=== PATIENT | female | born 1940 | race Caucasian/White ===

== ENCOUNTER → 2020-01-11 | Outpatient (CLI) | payer MEDICARE, OTHER | LOC: COL.RAD 12-26 12:30 | DX: I27.20 Pulmonary hypertension, unspecified (principal) | CPT/HCPCS: A9540; A9567 ==

== ENCOUNTER 2020-02-19 18:02 | Inpatient (IN) | payer MEDICARE, OTHER ==
[~2020-02-19] VITALS: Ht 167.6 cm; Wt 54.8 kg
[2020-02-19 19:01] LABS: BASO # 0.1 (0.0-0.2); BASO % 0.7 % (0.0-2.0); EOS # 0.2 (0.0-0.7); EOS % 1.9 % (0-4.0); GRAN % 81.9 % (42.2-75.2); HEMATOCRIT 44.1 % (37.0-47.0); LYMPH # 1.2 (1.2-3.4); LYMPH % 10.2 % (20.0-51.0); MEAN CELL VOLUME 89 fl (80.0-100.0); MEAN CORPUSCULAR HEMOGLOBIN 28 pg (27.0-31.0); MEAN CORPUSCULAR HGB CONC 32 g/dl (33.0-37.0); MEAN PLATELET VOLUME 9.2 fl (7.4-10.4); MONO # 0.6 (0.1-0.6); MONO % 4.9 % (1.7-9.3); PLATELET COUNT 322 K/mm3 (130-400); RED BLOOD COUNT 4.94 M/mm3 (4.10-5.30); REDCELL DISTRIBUTION WIDTH-CV 13.6 % (11.5-14.5)
[2020-02-19 19:09] LABS: ALANINE AMINOTRANSFERASE 13 U/L (4-34); ALBUMIN 4.5 gm/dL (3.5-5.0); ALKALINE PHOSPHATASE 94 U/L (50-136); ANION GAP 11 mmol/L (7-16); AST,SGOT 32 U/L (15-37); BILIRUBIN,TOTAL 0.5 mg/dL (0.0-1.0); BLOOD UREA NITROGEN 33 mg/dL (7-17); CALCIUM 9.3 mg/dL (8.4-10.2); CARBON DIOXIDE 25 mmol/L (22-30); CHLORIDE 99 mmol/L (98-107); CREATININE, serum 1.21 (0.52-1.25); GLUCOSE 105 mg/dL (74-106); POTASSIUM 4.7 mmol/L (3.4-5.0); SODIUM 135 mmol/L (137-145); TOTAL PROTEIN 8.5 gm/dL (6.4-8.2)
[2020-02-19 19:12] LABS: C-REACTIVE PROTEIN < 0.5 mg/dL (0.0-0.9)
[2020-02-19] MEDS ORDERED: BENICAR 20MG TA20 MG PO (19:16)
[2020-02-19] MEDS ORDERED: LASIX 40MG TABL40 MG PO (19:17)
[2020-02-19] MEDS ORDERED: SYNTHROID0.05 MG/TA PO (19:18)
[2020-02-19] MEDS ORDERED: COREG 3.123.125 MG/T PO (19:19)
[2020-02-19] MEDS ORDERED: AIRDUO DIGIHAL1 EAC1 IH (19:20)
[2020-02-19 20:37] LABS: PROTHROMBIN TIME 10.7 SECONDS (9.7-12.8)
[2020-02-19 21:53] VITALS: BP 110/40; PULSE 97; TEMP 97.7
--- NOTE | 2020-02-19 22:38 | NUR ---
Pt. arrived to the floor via stretcher. Pt. is A&OX3, assessment complete. IV to rt. forearm patent, IV fluids infusing per orders. Immobilizer brace to lt. leg. Pt. denies pain or other needs, call light within reach.
[2020-02-19] MEDS ORDERED: AIRDUO RESPICL1 EAC1 IH (23:53)
[2020-02-20 00:30] LABS: MUCOUS Present /lpf; PH 5 (5-8); SQUAMOUS EPITHELIAL 0-2 /hpf; URINE APPEARANCE Hazy; URINE BACTERIA Rare /hpf; URINE BILIRUBIN Negative (NEGATIVE); URINE BLOOD Negative (NEGATIVE); URINE COLOR Yellow; URINE GLUCOSE Negative (NEGATIVE); URINE KETONE Negative (NEGATIVE); URINE LEUKOCYTE ESTERASE Trace (NEGATIVE); URINE NITRATE Positive (NEGATIVE); URINE PROTEIN(semi-quant) Negative (NEGATIVE); URINE RBC 0-2 /hpf; URINE UROBILINOGEN Negative (NEGATIVE)
[2020-02-20 00:32] LABS: COLLECTION METHOD CLEAN CATCH
[2020-02-20 05:20] VITALS: BP 109/56; PULSE 95; TEMP 97.8
[2020-02-20 07:28] VITALS: BP 131/56; PULSE 74; TEMP 98.2
--- NOTE | 2020-02-20 09:35 | NUR ---
Initial visit; Patient thanked Salicylic Acid Blender for looking in on her and offering God's blessings for healing and for keeping her in Salicylic Acid Blender's prayers.
[2020-02-20 11:20] VITALS: BP 96/62; PULSE 92; TEMP 97.9
--- NOTE | 2020-02-20 11:31 | NUR ---
Used Car Make Ready Mechanic met with patient to discuss discharge planning. Patient lives in [place] with her son, Cortez (ph#[phone]) [address] Jacobson for primary care. Patient states she uses three pharmacies for her medications, [facility], [facility], and [facility] to get the best prices on her medications. Patient states her son, Cortez picks up her medications for her. Patient has home oxygen from [facility] and uses no other DME at home normally. Patient states her son does have walkers at home. Patient states she is normally independent with ADLS. Patient fell at home yesterday and advised that before yesterday, she has not fallen at home in a few years. Patient does not have Advance Directives. Patient is not and has two children, Cortez and Iesha (ph#[phone]). Patient states she would like to get home at discharge if possible and would be open to any recommended services. Patient states her daughter, Iesha may be a better point of contact for discharge planning. SW contacted patient's daughter, Iesha who requested a phone call from Hospitalist today. HESHAM Reeves spoke with Hospitalist about this. Patient may have surgery tomorrow. SW will continue to follow for discharge needs.
[2020-02-20 16:07] VITALS: BP 91/36; PULSE 86; TEMP 97.7
--- NOTE | 2020-02-20 18:30 | NUR ---
Patient had a rough day. She has issues with cramping a pain to her lower extremities chronically, so she is not comfortable in the brace. Denies nausea. Morphine has been helping for pain to her legs. We also tried norco and tylenol but so far the morphine works the best. No other changes at this time. Call light within reach.
[2020-02-20 19:08] VITALS: BP 113/54; PULSE 89; PULSE 98; TEMP 98.6
--- NOTE | 2020-02-20 21:00 | NUR ---
Pt. sitting up in bed at this time. Pt. is A&OX3, assessment complete. INT to rt. forearm patent. Pt. reports pain at a 5 on pain scale, giving pain meds per orders. Pt. has immobilizer brace to lt. leg. CMS wnl. Pt. denies further needs, call light within reach.
[2020-02-21] VITALS (10 sets, daily range): BP systolic 87–130; BP diastolic 40–68; PULSE 72–100; TEMP 97.4–99.3
[2020-02-21 06:57] LABS: BASO % 0.4 % (0.0-2.0); EOS # 0.2 (0.0-0.7); EOS % 1.8 % (0-4.0); GRAN # 7.7 (1.4-6.5); GRAN % 80.2 % (42.2-75.2); LYMPH # 0.9 (1.2-3.4); LYMPH % 8.8 % (20.0-51.0); MEAN CELL VOLUME 90 fl (80.0-100.0); MEAN CORPUSCULAR HGB CONC 32 g/dl (33.0-37.0); MEAN PLATELET VOLUME 9.7 fl (7.4-10.4); MONO # 0.8 (0.1-0.6); MONO % 8.4 % (1.7-9.3); PLATELET COUNT 246 K/mm3 (130-400); RED BLOOD COUNT 3.65 M/mm3 (4.10-5.30); REDCELL DISTRIBUTION WIDTH-CV 13.4 % (11.5-14.5)
[2020-02-21 06:59] LABS: CALCIUM 8.5 mg/dL (8.4-10.2); CREATININE, serum 1.21 (0.52-1.25); POTASSIUM 4.7 mmol/L (3.4-5.0)
[2020-02-21 07:08] LABS: HEMATOCRIT 32.9 % (37.0-47.0); HEMOGLOBIN 10.5 g/dl (12.5-16.0); MEAN CORPUSCULAR HEMOGLOBIN 29 pg (27.0-31.0)
--- NOTE | 2020-02-21 07:15 | NUR ---
PT RESTING IN BED EATING BREAKFAST. BEGIN THERAPY THIS AM. OCCLUSIVE ARGELIA WRAP CDI, EXTREMITY ELEVATED WITH PILLOW, SCDS INPLACE, ICE TO RIGHT KNEE.
--- NOTE | 2020-02-21 07:25 | NUR ---
Shift assessment complete. Pt. sitting up in bed, alert and oriented, ate about 50% of breakfast. Tele on, O2 on at 2L via nasal canula, INT rt forearm intact. Lugo in place and intact on rt leg, urine clear and yellow. Brace on lt. leg, elevated with pillows, has ice. Pt. denies any irritation from brace and only experiences pain when the leg is moved. Call light within reach, no further needs at this time.
--- NOTE | 2020-02-21 10:49 | NUR ---
Cloth Weaver attended clinical rounds with the team. PT/OT ordered. Hospitalist and RN advised that patient will likely need placement at discharge. SW followed up with patient to discuss placement options. Patient is unsure on what her choices would be and would like to see what her children think. SW contacted patient's daughter Iesha who is in agreement with placement for rehab. Iesha is interested in both [facility] and [facility] in [place]. Iesha is agreeable to have referrals sent to both. Iesha will follow up with patient and her family in regards to what the first preference would be. YEE contacted Jeanette [facility] Director to give referral. YEE then contacted Nuvia at [facility] and faxed referral. Nuvia advised that at this time they are not allowing visitors and will also require a COVID swab prior to admit if they are able to accept. YEE collaborated with HESHAM Bravo about ordering COVID swab. YEE will continue to follow.
--- NOTE | 2020-02-21 13:51 | NUR ---
Bobbin Winder Tender collaborated with Cortez PT who advised patient will not be able to tolerate three hours of daily therapy required of Inpatient Rehab. Shortly after, YEE spoke with Nuvia, Hobber at [facility] who declined referral as they did not feel they could medically manage patient. YEE contacted patient's daughter, Iesha who advised her brother, Cortez would be in to visit with the patient soon. YEE contacted Cortez who reports he will be here within the hour. YEE reviewed the above information with patient's son, Cortez who is in agreement that patient would require SNF instead of IPR. YEE advised Cortez that she would meet with patient and follow up with him about what referrals were sent. SW met with patient to review the above information. Patient agrees she could not do three hours daily of therapy. SW provided Medicare.gov list of SNFs within a 50 mile radius. Patient's preferences are 1) [facility] in [place] and 2) [facility]. YEE then contacted Jose at [facility] and faxed referral. YEE left a message for Jyoti at and emailed her a referral as they cannot receive faxes from the hospital. YEE will continue to follow.
--- NOTE | 2020-02-21 15:54 | NUR ---
Follow-up visit; Patient states she is still not doing well but thanks Armature Winder Helper Repair for continuing to keep her in chief medical director's prayers.
--- NOTE | 2020-02-21 16:41 | NUR ---
Cord Tire Builder met with patient and patient's son to provide update on referrals. [facility] and [facility] are both screening referral at this time. SW will continue to follow.
--- NOTE | 2020-02-21 19:51 | NUR ---
Resting in bed. Assessment complete. Lungs clear. Heart sounds irregular. Bowels active x4. Pulses present throughout. No edema noted. INT right forearm flushed without complications. CMS intact to left extremity. Denies pain at this time. Repositioned. Patient BP hypotensive. Spoke with HAL Vance- hold any BP medications and monitor at this time. Patient aware of plan. Call light in reach. Renteria to dependent drainage. Sediment in renteria.
--- NOTE | 2020-02-21 21:56 | NUR ---
Reported 8/10 leg pains. Requested PRN norco. BP improved. Provided with norco. Deneis other needs. Call light in reach.
--- NOTE | 2020-02-21 22:55 | NUR ---
Resting in bed asleep. Call light in reach.
--- NOTE | 2020-02-21 23:50 | NUR ---
Patient reported leg pains/muscle aches. Provided with PRN flexeril at this time. Will continue to monitor.
[2020-02-22 02:57] VITALS: BP 143/41
[2020-02-22 04:21] VITALS: BP 120/60; PULSE 100; TEMP 98.1
--- NOTE | 2020-02-22 04:52 | NUR ---
Resting in bed. Denies needs. Call light in reach.
--- NOTE | 2020-02-22 05:28 | NUR ---
Patient required PRN flexeril and norco for pain control throughout night. Otherwise uneventful night. Resting in bed this AM. Call light in reach.
[2020-02-22 07:01] VITALS: BP 121/50; PULSE 96; TEMP 98.2
--- NOTE | 2020-02-22 07:05 | NUR ---
Report given to HESHAM Bravo
[2020-02-22] MEDS ORDERED: ASPI325T6 PO (07:41)
[2020-02-22 08:10] LABS: BASO % 0.4 % (0.0-2.0); EOS # 0.2 (0.0-0.7); EOS % 1.8 % (0-4.0); GRAN # 8.9 (1.4-6.5); GRAN % 81.2 % (42.2-75.2); HEMOGLOBIN 10.6 g/dl (12.5-16.0); LYMPH # 0.8 (1.2-3.4); LYMPH % 7.6 % (20.0-51.0); MEAN CELL VOLUME 89 fl (80.0-100.0); MEAN CORPUSCULAR HEMOGLOBIN 29 pg (27.0-31.0); MEAN CORPUSCULAR HGB CONC 33 g/dl (33.0-37.0); MEAN PLATELET VOLUME 9.7 fl (7.4-10.4); MONO # 0.9 (0.1-0.6); MONO % 8.6 % (1.7-9.3); PLATELET COUNT 240 K/mm3 (130-400); RED BLOOD COUNT 3.63 M/mm3 (4.10-5.30); REDCELL DISTRIBUTION WIDTH-CV 13.3 % (11.5-14.5)
[2020-02-22 08:15] LABS: HEMATOCRIT 32.3 % (37.0-47.0)
[2020-02-22 08:27] LABS: CALCIUM 8.6 mg/dL (8.4-10.2); CREATININE, serum 1.04 (0.52-1.25); POTASSIUM 4.5 mmol/L (3.4-5.0)
[2020-02-22] MEDS ORDERED: TYLENOL 325MG325 MG PO (08:29)
[2020-02-22] MEDS ORDERED: OMNICEF 300MG300 MG PO (08:32)
[2020-02-22] MEDS ORDERED: NORCO 325 MG-51 TAB PO (08:33)
[2020-02-22] MEDS ORDERED: FLEXERIL 1010 MG/TAB PO (08:33)
--- NOTE | 2020-02-22 08:59 | NUR ---
AGREE WITH STUDENT'S ASSESSMENTS THIS AM.
--- NOTE | 2020-02-22 09:39 | NUR ---
Follow-up; Patient sleeping, left special prayer card for Rebecca as she continues to struggle with her health issues.
[2020-02-22 12:36] VITALS: BP 100/44; BP 163/94; PULSE 80; PULSE 82; TEMP 97.9; TEMP 98.2
--- NOTE | 2020-02-22 15:00 | NUR ---
Ad Trafficker contacted Jyoti at [facility] who advised they could not accept referral due to staffing. Jyoti reports they likely could not accept a new referral until next week. YEE contacted Jose at [facility] who reports they can accept if Financial Counseling assists patient with applying for Medicaid. Jose would also like for patient to have DPOA-HC established if possible. Jose reports that he spoke with patient's daughter and patient's son about break in stay and potential out of pocket cost as patient is non weight bearing. Jose states the family did not feel like they could afford out of pocket cost which is why Jose encouraged the family to apply for Medicaid. YEE consulted Halley, Financial Counselor. Halley contacted patient's son who said they were just going to take the patient home and did not want to pursue Medicaid. YEE contacted patient's son, Cortez to follow up. Cortez advised that the family would like to take patient home if possible with Home Health. Cortez reports that the patient would go home with his sister, Iesha in [place]. Cortez advised that Iesha and her son would be able to provide 24 hour supervision. Cortez advised that patient has a walker, wheelchair, and bedside commode available. Cortez states patient would be on the first level of the home and that there are no stairs to entire Iesha's home. YEE collaborated with Cortez and Armando from PT who advised this plan would be reasonable if family was willing to provide care. YEE contacted Iesha who states she could take patient home, but that it would have to be tomorrow so arrangements can be made arrangements for Home Health and to set up all needed DME. Iesha reports they would have to transport patient's home oxygen set up from her home in [place] to [place]. Iesha also expressed interest in a hospital bed. Iesha states she took care of her father three years ago in her home and that her son is home at this time and is a professional athletes coach. YEE then contacted [facility] and faxed over clinical information to determine if insurance would cover a hospital bed in the home for patient. YEE updated Hospitalist who did not feel this was the best plan for patient. YEE advised that Iesha reported she took care of her father in her home about three years ago. YEE also advised that patient has an accepting facility but family does not want to private pay. YEE contacted Iesha again to follow up on plan and Iesha states she does not feel that she knows what all her options are. Iseha inquired if patient can go to [facility] and then discharge home when Medicare stops covering stay. Iesha also inquired about a swing bed option. YEE informed Iesha that there is a [facility] in [place] and she would like a referral sent there. YEE followed up with Jose who advised they can still accept but would like for patient to apply for Medicaid and to have DPOA completed. Jose also advised that the team at [facility] may have concerns with discharge plan home depending on their assessment and patient's progress with therapy. YEE followed up with Shell at [place] [facility] who should have an answer soon. YEE will follow up.
[2020-02-22 16:10] VITALS: BP 121/62; PULSE 96; TEMP 98.3
--- NOTE | 2020-02-22 17:08 | NUR ---
Appliance Assembler contacted Shell at [facility] who advised they can accept patient tomorrow morning if that's where patient and family decide. YEE met with patient's children, Cortez and Iesha and presented options. YEE advised that [facility] could be an option if patient was willing to apply for Medicaid. YEE also advised that [facility] can accept tomorrow. Iesha advised that they would like patient to discharge to [facility]. Iesha also stated that as patient progresses, they would like to be rescreened for [place] [facility]. Iesha states that when patient is ready for discharge from [facility], she will take patient home with home health if at that time, patient still not qualifying for a stay at Inpatient Rehab. Iesha and Cortez are agreeable to provide transportation for patient to [facility] and will ensure they have patient's oxygen for transport. YEE updated NICHOLAS Lynch and HESHAM Bravo on discharge plan.
[2020-02-22 19:53] VITALS: BP 133/76; PULSE 101; TEMP 97.6
--- NOTE | 2020-02-22 22:10 | NUR ---
Pt. sitting up in bed at this time. Pt. is A&OX3, assessment complete. INT to rt. forearm patent. Brace to lt. leg. Pt. reports pain at a 5 on pain scale, gave pain meds per orders. Pt. denies further needs, call light within reach.
[2020-02-23 03:39] VITALS: BP 116/55; PULSE 104; TEMP 98.3
[2020-02-23 07:15] VITALS: BP 97/48; PULSE 96; TEMP 98
[2020-02-23] MEDS ORDERED: CHERATUSSIN AC120 ML PO (08:47)
[2020-02-23] MEDS ORDERED: THROAT LOZENGES1 LOZ MM (08:47)
--- NOTE | 2020-02-23 09:00 | NUR ---
Reviewed the student nurses assessment. Patient A&Ox3 sitting up in the bed with breakfast at the bedside. IV CDI. VSS. Denies pain and discomfort when sitting still. No further needs expressed from the patient. Call light within reach
[2020-02-23 09:18] VITALS: BP 97/48; PULSE 96; TEMP 98
--- NOTE | 2020-02-23 09:44 | NUR ---
Advertising Display Rotator collaborated with HESHAM Richmond-CM at [facility] who confirmed they can accept patient and will be in contact with patient's daughter, Iesha. YEE met with patient who is agreeable to discharge to [facility]. SW read IM form aloud to patient who verbalized understanding and gave SW permission to sign on her behalf. SW placed original in chart and provided copy to patient. YEE provided phone number for accepting physician, Irwin Ozuna to Hospitalist who completed Dr to Dr call. YEE provided report # to HESHAM Max who gave report. YEE faxed dischare orders to Yi at [facility]. YEE then was contacted by Yi at [facility] who advised that during RN report, it was said that patient is a three person assist. YEE reviewed PT notes from this morning with Yi and also facilitated a phone call between Yi and RNWinter. Yi is going to review with her team and follow up.
--- NOTE | 2020-02-23 09:58 | NUR ---
Bridge Construction Inspector was contacted by Yi at [facility] who advised after reviewing with the team, they will take patient this morning. Patient's son, Cortez to turkey picker patient between [phone].
--- NOTE | 2020-02-23 11:00 | NUR ---
Patient transfered by wheelchair to vehicle outside with 1 nurse and 2 students to assist in getting patient in the car. Family waiting outside with the family. Discharge packet and personal belongings with the patient. Report called to [facility]. No further needs expressed from the patient.
== END 2020-02-23 11:00 | DRG 543 ==
LOC: COL.ER 18:02 → SURG 19:09 → EDBEDREQ 21:14 → SURG 02-23 11:00
PROVIDERS: Emergency Medicine; Nurse Practitioner Family; Physician Assistant; ADMIT Hospitalist
DX: M84.452A Pathological fracture, left femur, initial encounter for fracture (principal); E87.1 Hypo-osmolality and hyponatremia; N39.0 Urinary tract infection, site not specified; I50.22 Chronic systolic (congestive) heart failure; I42.9 Cardiomyopathy, unspecified; D64.9 Anemia, unspecified; I50.9 Heart failure, unspecified; I11.0 Hypertensive heart disease with heart failure; J44.9 Chronic obstructive pulmonary disease, unspecified; E03.9 Hypothyroidism, unspecified; I25.10 Atherosclerotic heart disease of native coronary artery without angina pectoris; Z88.2 Allergy status to sulfonamides
CPT/HCPCS: 99223-AI; 99232-AI; 99233-AI; 99239; A9284; J0696; J2270; J2405; J7030; J7040

== ENCOUNTER → 2020-05-03 | Outpatient (CLI) | payer MEDICARE, OTHER ==
[~2020-05-03] MED LIST: AIRDUO DIGIHAL1 EAC1 IH; AIRDUO RESPICL1 EAC1 IH; ASPI325T6 PO; BENICAR 20MG TA20 MG PO; CHERATUSSIN AC120 ML PO; COREG 3.123.125 MG/T PO; FLEXERIL 1010 MG/TAB PO; LASIX 40MG TABL40 MG PO; NORCO 325 MG-51 TAB PO; OMNICEF 300MG300 MG PO; SYNTHROID0.05 MG/TA PO; THROAT LOZENGES1 LOZ MM; TYLENOL 325MG325 MG PO
== END ==
LOC: ZCOL.LAB 20:09
DX: L89.899 Pressure ulcer of other site, unspecified stage (principal)